=== PATIENT | female | born 2000 | race African-American/Black ===

== ENCOUNTER 2025-03-01 15:10 | Emergency (ER) | payer OTHER ==
[~2025-03-01] VITALS: Ht 165.1 cm; Wt 85.0 kg
[2025-03-01 15:19] VITALS: TEMP 98.5
[2025-03-01] MEDS: ONDANSETRON HCL 4 MG/2 ML VIAL IVP ONE (15:55)
[2025-03-01] MEDS: SODIUM CHLORIDE 0.9% 2,000 ML IV ONE (15:55)
[2025-03-01 16:09] LABS: PLATELET COUNT (AUTO) 236 K/uL (150-450); RED BLOOD CELL COUNT(AUTO) 4.36 MIL/uL (4.00-5.20); RED CELL DISTRIBUTION WIDTH 13.4 % (11.5-14.5); WHITE BLOOD COUNT (AUTO) 4.0 K/uL (4.5-11.0)
[2025-03-01 16:18] LABS: CALCIUM, TOTAL 8.8 mg/dL (8.8-10.5); CREATININE 0.75 mg/dL (0.60-1.30); GLOMERULAR FILTR. RATE CALC > 60 mL/min (>60); GLUCOSE,RANDOM 95 mg/dL (70-110); SODIUM SERUM 138 mmol/L (136-145); UREA NITROGEN, BLOOD 6 mg/dL (7-18)
[2025-03-01] MEDS: SODIUM CHLORIDE 0.9% 1,000 ML IV ONE (17:05)
[2025-03-01] MEDS ORDERED: PREN-18 PO (17:10)
[2025-03-01] MEDS ORDERED: DOXY1TAB3 PO (17:10)
[2025-03-01 17:20] VITALS: BP 120/72; PULSE 75; RESP 18; O2SAT 99
== END 2025-03-01 17:22 | disposition home or self-care (01) ==
LOC: EMS 15:10
DX: O21.0 Mild hyperemesis gravidarum (principal); N89.8 Other specified noninflammatory disorders of vagina; Z3A.01 Less than 8 weeks gestation of pregnancy; Z98.890 Other specified postprocedural states
CPT/HCPCS: 99285; 96374; 76801; 96361; 80048; 84702; 85025; 36415; J2405